=== PATIENT | female | born 1940 | race Caucasian/White ===

== ENCOUNTER 2016-11-23 14:35 | Emergency (ER) | payer MEDICARE, OTHER ==
[2016-11-23 15:03] VITALS: BP 115/87
--- NOTE | 2016-11-23 15:46 | EDM.PDOC ---
ED HPI GENERAL MEDICAL PROBLEM - General Chief Complaint: Lower Extremity Injury/Pain Stated Complaint: RT HEEL PAIN Time Seen by Provider: 11/23/16 15:39 Source of Information: Reports: Patient History Limitations: Reports: No Limitations - History of Present Illness INITIAL COMMENTS - FREE TEXT/NARRATIVE: 75-year-old female presents to the ED in the accompaniement of her . Patient has chronic ulcerations on her right heel for at least 6 weeks. She has been seen by Dr. Welch and Cara Ortega in this regard. Lately she's been putting Voltaren gel 1% on this area and is making the pain worse and the ulcerations are breaking down further. Patient has severe peripheral vascular disease and has had previous femoropopliteal graft on the right side. Therefore she has severe peripheral vascular disease below the knee to the foot. At present she has rest pain and pain is worse at night classified mostly a severe deep burning pain. She has oxycodone tablets which he uses very sparingly due to fear of being it coming addicted to them. She has not tried Trental. She has not tried gabapentin or other medications that may relieve neurogenic pain. She essentially attends the ED wondering if folds are becoming infected and seeking pain management. Onset: Gradual (Over the last 6-8 weeks.) Onset Date: 10/03/16 (Was seen October [address] Welch.) Duration: Week(s):, Chronic, Constant, Getting Worse Location: Reports: Lower Extremity, Right (Right heel) Quality: Reports: Ache, Burning, Stabbing, Throbbing Severity: Moderate (Sometimes pain is quite severe) Improves with: Reports: None Worsens with: Reports: None Context: Reports: Other (Known severe peripheral vascular disease. She does not have diabetes). 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: Reports: Other (see below) Right Feet Pain Score (Numeric/FACES): 1 - Related Data Allergies Allergy/AdvReac Type Severity Reaction Status Date / Time tape Allergy Severe reddness/sw Uncoded 11/23/16 15:03 elling/rash Home Meds: Home Meds Acetaminophen [Arthritis Pain Relief] 650 mg PO Q4HR PRN 01/12/15 [History] Aspirin [Ecotrin] 81 mg PO BID 01/12/15 [History] InFLIXimab [Remicade] 100 mg IV ASDIRECTED 01/12/15 [History] Methotrexate Sodium [Methotrexate] 12.5 mg PO WE 01/12/15 [History] Metoprolol Succinate [Toprol XL] 50 mg PO DAILY 01/12/15 [History] Multivitamin [One Daily] 0.5 each PO BID 01/12/15 [History] Omeprazole 20 mg PO DAILY 01/12/15 [History] Oxybutynin 5 mg PO BID 01/12/15 [History] Simvastatin [Zocor] 10 mg PO DAILY 01/12/15 [History] Triamterene/Hydrochlorothiazid [Triamterene-HCTZ 37.5-25 MG] 25 - 37.5 mg PO Q2D 01/12/15 [History] traMADol HCl [Tramadol HCl] 50 mg PO BID 01/14/15 [History] Methotrexate 5 tab PO WEEKLY 01/25/15 [History] Sennosides/Docusate Sodium [Niurka-Colace] 100 mg PO DAILY 01/25/15 [History] amLODIPine [Norvasc] 5 mg PO DAILY 01/25/15 [History] Gabapentin [Neurontin] 100 mg PO BEDTIME #30 cap 11/23/16 [Rx] Mupirocin Oint [Bactroban Oint] 22 gm TOP ASDIRECTED #1 tube 11/23/16 [Rx] Pentoxifylline [TRENtal] 400 mg PO TIDMEALS #90 tab.er 11/23/16 [Rx] Past Medical History Cardiovascular History: Reports: PVD (Severe. Has had previous femoropopliteal grafts bilaterally. 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 Also takes Remicade weekly.) - Past Surgical History Other Cardiovascular Surgeries/Procedures: Open heart surgery 2006. carotid surgery 2004&2007 Social & Family History - Tobacco Use Smoking Status *Q: Former Smoker Used Tobacco, but Quit: Yes Month Tobacco Last Used: 10 years Second Hand Smoke Exposure: Yes - Caffeine Use Caffeine Use: Reports: None - Recreational Drug Use Recreational Drug Use: No - Living Situation & Occupation Living situation: Reports: Occupation: Retired Review of Systems - Review of Systems Review Of Systems: See Below Constitutional: Denies: Chills, Diaphoresis, Fever, Weakness, Other Eyes: Reports: Decreased Acuity Ears: Reports: No Symptoms Nose: Reports: No Symptoms Mouth/Throat: Reports: No Symptoms Respiratory: Reports: Shortness of Breath. Denies: Wheezing (On minimal exertion. Has COPD by history), Pleuritic Chest Pain Cardiovascular: Reports: No Symptoms. Denies: Chest Pain, Edema, Irregular Heart Rate GI/Abdominal: Reports: No Symptoms Genitourinary: Reports: No Symptoms Musculoskeletal: Reports: Leg Pain (Right heel primarily claudication both lower extremities with minimal walking of less than 40 feet.), Foot Pain Skin: Reports: Other (Skin breakdown in the terms of superficial ulcerations right heel over the last 6 weeks) Neurological: Reports: Paresthesia (Burning pain right heel) Psychiatric: Reports: No Symptoms ED EXAM, GENERAL - Physical Exam Exam: See Below Exam Limited By: No Limitations General Appearance: Alert, WD/WN, No Apparent Distress Respiratory/Chest: Decreased Breath Sounds (Decreased air entry to both lower lungs in 4 or 40% bilaterally.), Wheezing (Occasional expiratory wheezing.) Cardiovascular: Regular Rate, Rhythm, No Edema, No Gallop, No Murmur, No Rub. No: Normal Peripheral Pulses Back Exam: Other (Mild kyphosis thoracic spine) Extremities: Normal Inspection, Normal Range of Motion, Non-Tender, No Pedal Edema, Normal Capillary Refill Neurological: Alert, Oriented, CN II-XII Intact, Normal Cognition Psychiatric: Normal Affect, Normal Mood Skin Exam: Warm, Dry, Other (Patient has four superficial ulcers on the heel of her right foot.). No: Intact, Normal Color Course - Vital Signs Last Recorded V/S: Last Vital Signs Temp 35.9 C 11/23/16 14:50 Pulse 50 L 11/23/16 14:50 Resp 18 11/23/16 14:50 BP 115/87 11/23/16 14:50 Pulse Ox 100 11/23/16 14:50 - Radiology Interpretation Free Text/Narrative:: 75-year-old female attends the ED due to pain in skin breakdown on her right heel. In going on for about 6-7 weeks. Patient has known severe peripheral vascular disease having had previous femoropopliteal grafting to bilateral legs. She has claudication on walking as even as little as 15-20 feet. Skin started to breakdown the right heel around the last part of September. She was seen by Dr. Cristopher Marx third. Current medications she is applying to this area seems to be making it worse instead of better which I thought it was Voltaren gel. On examination she has superficial ulcerations 4 to the plantar surface of the heel. There is no obvious erythema or purulent drainage. She comes to the ED seeking primary directive as to what to do. She has oxycodone tablets which she is fearful of taking for pain relief and she only takes it when the pain is uncontrollable. She is worried about getting addicted to them. On my assessment the ulcerations are superficial noninfected and therefore can be dressed daily with soap and water and apply topical antibiotic use Cipro and ointment to the areas to prevent secondary infection. The goal is to try and improve circulation to the skin to allow these ulcers to heal. I'm suggesting he try a trial of Trental 400 mg 3 times daily for 3 months to see if this will improve her claudication symptoms as well as improve blood flow to her foot. Unclear whether this is ever been tried before. Also suggest starting on gabapentin 100 mg at bedtime and every week increasing by 100 mg at bedtime until she gets some control of the pain in her foot. She can still use the oxycodone tablets on a when necessary basis for when the pain is out of control. She is to follow-up with Kimberlyn Ortega or is contemplating following up with Dr. Karen Ko whom she knows well for follow-up. Departure - Departure Time of Disposition: 15:39 Disposition: Home, Self-Care 01 Condition: Fair Clinical Impression: Ischemic ulcer of heel Qualifiers: Laterality: right Non-pressure ulcer stage: limited to breakdown of skin Qualified Code(s): L97.411 - Non-pressure chronic ulcer of right heel and midfoot limited to breakdown of skin - Discharge Information Prescriptions: Gabapentin [Neurontin] 100 mg PO BEDTIME #30 cap Mupirocin Oint [Bactroban Oint] 22 gm TOP ASDIRECTED #1 tube Pentoxifylline [TRENtal] 400 mg PO TIDMEALS #90 tab.er Instructions: Peripheral Vascular Disease, [id number], Laceration Care, Adult , [id number] Referrals: Berkley Ortega NP [Primary Care Provider] - Forms: ED Department Discharge Additional Instructions: Evaluation in the emergency room today in regards to severe peripheral vascular disease with development of superficial skin ulceration on the right heel. Skin breakdown is due to poor circulation to the skin in this area but there are no deep ulcers at this time. There are no signs of infection at this time. Treatment is to daily cleanse the wound with soap and water gently. Place Bactroban ointment onto the area once daily to prevent secondary infection from occurring. As far as pain management I suggest starting Neurontin 100 mg at bedtime try to take it about 2 hours before planning on going to bed. Weighted week and see if the pain is any better. If not then we start taking 2 tablets at bedtime for another week and gradually increase the dose until pain is controlled. You can still use her oxycodone tablet if the pain is really bad. The third medicine is Trental which is a normal medicine used to try and open up blood vessels to supply better blood flow to the skin in peripheral vascular disease. Is taken 3 times daily and I would suggest trying it for. In 3 months or at least until we get the ulcers healed up.
== END 2016-11-23 16:10 | disposition home or self-care (01) ==
LOC: JD.ED 14:35
DX: L97.411 Non-pressure chronic ulcer of right heel and midfoot limited to breakdown of skin (principal); I73.9 Peripheral vascular disease, unspecified; K21.9 Gastro-esophageal reflux disease without esophagitis; M06.9 Rheumatoid arthritis, unspecified; Z98.890 Other specified postprocedural states; Z79.82 Long term (current) use of aspirin; Z79.899 Other long term (current) drug therapy; Z91.048 Other nonmedicinal substance allergy status; Z87.891 Personal history of nicotine dependence
CPT/HCPCS: 99283

== ENCOUNTER 2022-03-14 12:59 | Emergency (ER) | payer MEDICARE, BC ==
[2022-03-14] MEDS ORDERED: Morphine 2 MG/ML SYRINGE IVPUSH ONE (13:32)
[2022-03-14] MEDS ORDERED: Ondansetron 4 MG/2 ML SDV IVPUSH ONE ×3 (13:41→20:55)
[2022-03-14] MEDS ORDERED: Pantoprazole 40 MG Vial IV ONE (13:41)
[2022-03-14] MEDS ORDERED: Morphine 2 MG/ML SYRINGE ONE (16:38)
[2022-03-14] MEDS ORDERED: Ondansetron 4 MG/2 ML SDV ONE (18:27)
[2022-03-14] MEDS ORDERED: Morphine 2 MG/ML SYRINGE IV ONE (20:12)
[2022-03-14] MEDS ORDERED: Piperacillin/Tazobactam 3.375 GM in Sodium Chloride 0.9% 100 ML IV ONE (20:20)
[2022-03-14] MEDS ORDERED: Heparin Sodium 5,000 Units/ML Vial SUBCUT ONE (20:20)
[2022-03-14] MEDS ORDERED: D5 1/2 NS w/ 20 mEq/L KCl 1,000 ML IV ONE (20:20)
[2022-03-14] MEDS ORDERED: Metoprolol Tartrate 5 MG/5 ML SDV IV ONE (21:00)
[2022-03-15] MEDS ORDERED: Morphine 2 MG/ML SYRINGE IV ONE (00:05)
[2022-03-15] MEDS ORDERED: Heparin Sodium 5,000 Units/ML Vial SUBCUT ONE (04:00)
[2022-03-15] MEDS ORDERED: Piperacillin/Tazobactam 3.375 GM in Sodium Chloride 0.9% 100 ML IV ONE (04:00)
[2022-03-15] MEDS ORDERED: D5 1/2 NS w/ 20 mEq/L KCl 1,000 ML IV ONE (10:50)
[2022-03-15] MEDS ORDERED: Pantoprazole 40 MG Tab.CR PO ONE (13:45)
[2022-03-15] MEDS ORDERED: amLODIPine 5 MG Tab PO ONE (13:45)
[2022-03-15] MEDS ORDERED: Metoprolol Succinate 50 MG Tab.ER PO ONE (13:45)
[2022-03-15] MEDS ORDERED: Hydrochlorothiazide 12.5 MG Cap PO ONE (16:15)
[2022-03-15] MEDS ORDERED: Isosorbide Mononitrate 30 MG Tab.ER PO ONE (16:15)
[2022-03-15] MEDS ORDERED: Oxybutynin 5 MG Tab PO ONE (21:18)
[2022-03-15] MEDS ORDERED: Ursodiol 300 MG Cap PO ONE (21:58)
[2022-03-15] MEDS ORDERED: Pentoxifylline 400 MG Tab.ER PO ONE (21:58)
[2022-03-16] MEDS ORDERED: Piperacillin/Tazobactam 3.375 GM in Sodium Chloride 0.9% 100 ML IV ONE (04:00)
[2022-03-16] MEDS ORDERED: amLODIPine 5 MG Tab PO ONE (09:00)
[2022-03-16] MEDS ORDERED: Pentoxifylline 400 MG Tab.ER PO ONE (09:00)
[2022-03-16] MEDS ORDERED: Ursodiol 300 MG Cap PO ONE (09:00)
[2022-03-16] MEDS ORDERED: Metoprolol Succinate 50 MG Tab.ER PO ONE (09:00)
[2022-03-16] MEDS ORDERED: Pantoprazole 40 MG Tab.CR PO ONE (09:00)
[2022-03-16] MEDS ORDERED: D5 1/2 NS w/ 20 mEq/L KCl 1,000 ML IV ONE (09:00)
[2022-03-16] MEDS ORDERED: Isosorbide Mononitrate 30 MG Tab.ER PO ONE (09:00)
[2022-04-12 14:44] LABS: ESTIMATED GFR 30 mL/min (>60)
== END 2022-03-14 18:32 | disposition critical access hospital (66) ==
LOC: JD.ED 12:59
DX: K81.0 Acute cholecystitis (principal)
CPT/HCPCS: 71045; 74176; 93005; 96374; 96375; 96376; 99284; C9113; J1644; J2270; J2405; J2543; J3480; J3490; 36415; 80053; 81001; 83880; 84484; 85025; 85610; 85730

== ENCOUNTER 2022-07-15 11:06 | Emergency (ER) | payer MEDICARE, BC ==
[2022-07-15 15:16] VITALS: BP 157/59; PULSE 68
== END 2022-07-15 15:10 | disposition home or self-care (01) ==
LOC: JD.ED 11:06
DX: R39.15 Urgency of urination (principal); M79.605 Pain in left leg; K21.9 Gastro-esophageal reflux disease without esophagitis; M06.9 Rheumatoid arthritis, unspecified; Z91.048 Other nonmedicinal substance allergy status; Z88.8 Allergy status to other drugs, medicaments and biological substances; Z79.82 Long term (current) use of aspirin; Z79.02 Long term (current) use of antithrombotics/antiplatelets; Z79.899 Other long term (current) drug therapy
CPT/HCPCS: 81001; 93971-26-LT; 93971-LT; 99284

== ENCOUNTER 2024-03-15 12:08 | Inpatient (IN) | payer MEDICARE, BC ==
[2024-03-15] MEDS ORDERED: Sodium Chloride 0.9% 10 ML Syringe FLUSH PRN (12:18)
[2024-03-15 12:30] LABS: BASOPHILS PERCENT AUTO 0.6 % (0.0-1.0); EOSINOPHILS ABSOLUTE AUTO 0.1 K/mm3 (0.0-0.4); EOSINOPHILS PERCENT AUTO 1.8 % (0.0-6.0); HEMATOCRIT 41.3 % (37.0-47.0); HEMOGLOBIN 13.5 gm/dl (12.0-16.0); IMMATURE GRAN ABSOLUTE AUTO 0.02 K/mm3 (0.00-0.05); IMMATURE GRAN PERCENT AUTO 0.3 % (0.0-0.4); LYMPHOCYTES ABSOLUTE AUTO 1.6 K/mm3 (1.0-4.8); LYMPHOCYTES PERCENT AUTO 21.8 % (24.0-44.0); MEAN CORPUSCULAR HEMOGLOBIN 32.8 pg (28.0-32.0); MEAN CORPUSCULAR HGB CONC 32.7 g/dl (32.0-36.0); MEAN CORPUSCULAR VOLUME 100.5 fl (83.0-99.0); MEAN PLATELET VOLUME 9.2 fl (9.4-12.3); MONOCYTES ABSOLUTE AUTO 0.7 K/mm3 (0.0-0.8); MONOCYTES PERCENT AUTO 9.7 % (0.0-8.0); NEUTROPHILS ABSOLUTE AUTO 4.7 K/mm3 (1.8-7.7); NEUTROPHILS PERCENT AUTO 65.8 % (41.0-71.0); PLATELET COUNT,PLT 192 K/mm3 (150-400); RED BLOOD CELL COUNT 4.11 M/mm3 (4.10-5.30); WHITE BLOOD CELL COUNT,WBC 7.19 K/mm3 (3.9-11.3)
[2024-03-15] MEDS: Iopamidol 755 Mg/ML 100 ML Bottle IVPUSH ONE (12:37)
[2024-03-15] MEDS: Sodium Chloride 0.9% 100 ML IV SCH (12:37)
[2024-03-15 12:48] LABS: PROTHROMBIN TIME 10.6 SECONDS (9.7-12.0)
[2024-03-15 12:49] LABS: PTT,PARTIAL THROMBOPLSTIN TIME 26.7 SECONDS (21.7-31.4)
[2024-03-15 12:54] LABS: A/G RATIO 0.8 (1-2); ALANINE AMINOTRANSFERASE,ALT 13 U/L (14-59); ALBUMIN 3.8 g/dl (3.4-5.0); ALKALINE PHOSPHATASE 107 U/L (46-116); ANION GAP 14.8 (5-15); ASPARTATE AMNIOTRANSFERASE,AST 22 U/L (15-37); BILIRUBIN TOTAL 0.6 mg/dL (0.2-1.0); BLOOD UREA NITROGEN,BUN 25 mg/dL (7-18); BUN/CREATININE RATIO 15.6 (14-18); CALCIUM 9.4 mg/dL (8.5-10.1); CARBON DIOXIDE,CO2 27 mEq/L (21-32); CHLORIDE,CL 101 mEq/L (98-107); CREATININE 1.6 mg/dL (0.55-1.02); ESTIMATED GFR 32 mL/min (>60); GLUCOSE RANDOM 105 mg/dL (70-99); POTASSIUM,K 3.8 mEq/L (3.5-5.1); PROTEIN TOTAL,TP 8.5 g/dl (6.4-8.2); SODIUM,NA 139 mEq/L (136-145); TROPONIN I HIGH SENSITIVITY 14 pg/mL (<=51)
[2024-03-15] MEDS: Sodium Chloride 0.9% 500 ML IV ONE (13:09)
[2024-03-15 13:14] LABS: TSH 3.145 uIU/mL (0.358-3.74)
[2024-03-15 13:19] LABS: APPEARANCE,URINE CLEAR (Clear); BILIRUBIN,URINE NEGATIVE (Negative); COLOR,URINE YELLOW (Yellow); GLUCOSE,URINE NEGATIVE (Negative); KETONES,URINE NEGATIVE (Negative); LEUKOCYTE ESTERASE,URINE 1+ (Negative); NITRITE,URINE NEGATIVE (Negative); OCCULT BLOOD,URINE 1+ (Negative); PROTEIN,URINE 1+ (Negative); UROBILINOGEN,URINE 0.2 (0.2-1.0)
[2024-03-15 14:11] LABS: BACTERIA,URINE FEW /hpf (FEW); MUCUS,URINE RARE /hpf (FEW)
[2024-03-15] MEDS: Aspirin 81 MG Tab.EC PO ONE (14:24)
[2024-03-15] MEDS: Rosuvastatin 10 MG Tab PO ONE ×2 (14:24→20:21)
[2024-03-15 15:18] LABS: CORONAVIRUS COVID-19 NAA NEGATIVE (NEGATIVE); INFLUENZA A NAA NEGATIVE (NEGATIVE); RESPIRATORY SYNCYTIAL VIR NAA NEGATIVE (NEGATIVE)
[2024-03-15] MEDS ORDERED: hydrALAZINE 20 MG/ML SDV IVPUSH PRN (16:45)
[2024-03-15] MEDS ORDERED: Acetaminophen 325 MG Tab PO PRN (16:46)
[2024-03-15] MEDS: cefTRIAXone 1 GM in Sodium Chloride 0.9% 100 ML IV SCH (20:17)
[2024-03-15] MEDS: Clopidogrel 75 MG Tab PO ONE (20:21)
[2024-03-16 05:42] LABS: HEMOGLOBIN A1C 6.1 %
[2024-03-16 06:03] LABS: CHOLESTEROL HDL 58 mg/dL (40-59); CHOLESTEROL LDL DIRECT 43 mg/dL (<100); CHOLESTEROL TOTAL 120 mg/dL (<200); TRIGLYCERIDES 91 mg/dL (<150)
[2024-03-16 07:59] LABS: ANION GAP 18.4 (5-15); BUN/CREATININE RATIO 16.4 (14-18); CALCIUM 9.3 mg/dL (8.5-10.1); CREATININE 1.4 mg/dL (0.55-1.02); EST CRCL DRUG DOSING (CG) 21.87 mL/min; POTASSIUM,K 3.4 mEq/L (3.5-5.1)
[2024-03-16] MEDS: Clopidogrel 75 MG Tab PO SCH (08:05)
[2024-03-16] MEDS: Aspirin 81 MG Tab.Chew PO SCH (08:06)
[2024-03-16 08:14] LABS: HEMATOCRIT 36.1 % (37.0-47.0); MEAN CORPUSCULAR HGB CONC 33.2 g/dl (32.0-36.0); MEAN CORPUSCULAR VOLUME 99.2 fl (83.0-99.0); MEAN PLATELET VOLUME 9.7 fl (9.4-12.3); PLATELET COUNT,PLT 176 K/mm3 (150-400); RED BLOOD CELL COUNT 3.64 M/mm3 (4.10-5.30)
[2024-03-16] MEDS ORDERED: INFLIXIMAB 100 MG IV SCH (12:15)
[2024-03-16] MEDS ORDERED: Hydrochlorothiazide/Triamterene 25-37.5 MG Cap PO SCH (12:30)
[2024-03-16] MEDS: Ezetimibe 10 MG Tab PO SCH (13:19)
[2024-03-16] MEDS: Oxybutynin 5 MG Tab PO SCH (17:58)
[2024-03-16] MEDS: Rosuvastatin 10 MG Tab PO SCH (19:43)
[2024-03-16] MEDS ORDERED: Rosuvastatin 10 MG Tab PO SCH (21:00)
[2024-03-17 06:31] LABS: HEMATOCRIT 37.6 % (37.0-47.0); HEMOGLOBIN 12.2 gm/dl (12.0-16.0); MEAN CORPUSCULAR HEMOGLOBIN 32.3 pg (28.0-32.0); MEAN CORPUSCULAR HGB CONC 32.4 g/dl (32.0-36.0); MEAN CORPUSCULAR VOLUME 99.5 fl (83.0-99.0); MEAN PLATELET VOLUME 9.3 fl (9.4-12.3); PLATELET COUNT,PLT 175 K/mm3 (150-400); RED BLOOD CELL COUNT 3.78 M/mm3 (4.10-5.30)
[2024-03-17] MEDS: Pantoprazole 40 MG Tab.CR PO SCH (06:53)
[2024-03-17 06:57] LABS: ANION GAP 11.3 (5-15); BUN/CREATININE RATIO 14.6 (14-18); CREATININE 1.3 mg/dL (0.55-1.02); EST CRCL DRUG DOSING (CG) 23.55 mL/min; POTASSIUM,K 3.3 mEq/L (3.5-5.1)
[2024-03-17] MEDS: Potassium Chloride 10 MEQ in Premix Bag 1 BAG IV SCH (08:19)
[2024-03-17] MEDS: Metoprolol Succinate 50 MG Tab.ER PO SCH (08:20)
[2024-03-17] MEDS: Sodium Chloride 0.9% 500 ML IV ONE (09:22)
[2024-03-17] MEDS: amLODIPine 5 MG Tab PO SCH (09:26)
[2024-03-17] MEDS: Isosorbide Mononitrate 30 MG Tab.ER PO SCH (09:28)
[2024-03-17] MEDS: Ondansetron 4 MG/2 ML SDV IVPUSH PRN (09:45)
[2024-03-17] MEDS: Apixaban 2.5 MG Tab PO SCH (20:17)
[2024-03-18 06:53] LABS: HEMATOCRIT 36.7 % (37.0-47.0); HEMOGLOBIN 11.8 gm/dl (12.0-16.0); MEAN CORPUSCULAR HEMOGLOBIN 32.4 pg (28.0-32.0); MEAN CORPUSCULAR HGB CONC 32.2 g/dl (32.0-36.0); MEAN CORPUSCULAR VOLUME 100.8 fl (83.0-99.0); MEAN PLATELET VOLUME 9.4 fl (9.4-12.3); PLATELET COUNT,PLT 178 K/mm3 (150-400); RED BLOOD CELL COUNT 3.64 M/mm3 (4.10-5.30); WHITE BLOOD CELL COUNT,WBC 6.57 K/mm3 (3.9-11.3)
[2024-03-18 07:18] LABS: ANION GAP 11.2 (5-15); BUN/CREATININE RATIO 12.5 (14-18); CALCIUM 8.9 mg/dL (8.5-10.1); CREATININE 1.2 mg/dL (0.55-1.02); EST CRCL DRUG DOSING (CG) 25.51 mL/min; POTASSIUM,K 4.2 mEq/L (3.5-5.1)
[2024-03-18 13:15] VITALS: BP 129/66; PULSE 86
[2024-03-19] MEDS ORDERED: Methotrexate 2.5 MG Tab PO SCH (09:00)
== END 2024-03-18 13:21 | disposition home or self-care (01) | DRG 66 ==
LOC: JD.ED 12:08 → JD.MS 14:52
PROVIDERS: ADMIT Family Medicine; ATTEND Internal Medicine
DX: R47.01 Aphasia (principal); I63.312 Cerebral infarction due to thrombosis of left middle cerebral artery; I25.10 Atherosclerotic heart disease of native coronary artery without angina pectoris; I10 Essential (primary) hypertension; Z79.82 Long term (current) use of aspirin; I73.9 Peripheral vascular disease, unspecified; Z66 Do not resuscitate; E78.5 Hyperlipidemia, unspecified; M06.9 Rheumatoid arthritis, unspecified; R29.704 NIHSS score 4; E87.6 Hypokalemia; K21.9 Gastro-esophageal reflux disease without esophagitis; H54.7 Unspecified visual loss; Z91.048 Other nonmedicinal substance allergy status; Z88.8 Allergy status to other drugs, medicaments and biological substances; Z79.02 Long term (current) use of antithrombotics/antiplatelets; Z79.899 Other long term (current) drug therapy; Z79.52 Long term (current) use of systemic steroids; Z87.440 Personal history of urinary (tract) infections; Z95.1 Presence of aortocoronary bypass graft
CPT/HCPCS: 0241U; 36415; 70450; 70496; 70498; 70551; 80048; 80053; 80061; 81001; 82607; 82947; 83036; 83735; 84443; 84484; 85025; 85027; 85610; 85730; 87086; 92610; 93005; 93306; 94761; 97110; 97162; 99285; 93010; A9270-GY; J0696; J2405; J3480; J3490; J7030; J7040; Q9967